=== PATIENT | female | born 1960 | race Caucasian/White ===

== ENCOUNTER → 2020-05-29 10:16 | Outpatient (CLI) | payer MEDICARE, BC, SELFPAY ==
--- NOTE | ~2020-05-29 | XR_ITS ---
EXAMINATION: XR chest 2V EXAM DATE: 05/29/2020 10:42 INDICATION: R07.89 - Other chest pain . TECHNIQUE: Frontal and lateral projections of the chest obtained and reviewed. Comparison is made to prior examination from 07/04/2018. FINDINGS: Mild hyperinflation. Sternotomy wires are present without findings to suggest sternal dehi scence. The lungs are clear. There are no pleural effusions. The cardiomediastinal silhouette is wi thin normal limits. There is no pneumothorax suspected. Left 5th rib fracture posteriorly, old. IMPRESSION: No acute cardiopulmonary findings. Reviewed, dictated and finalized at location B. GER LAUNDRY
== END ==
PROVIDERS: Visit Provider Physician Assistant
DX: R07.89 Other chest pain (principal)
CPT/HCPCS: 71046

== ENCOUNTER → 2021-01-25 08:50 | Outpatient (CLI) | payer MEDICARE, BC, SELFPAY ==
--- NOTE | ~2021-01-25 | XR_ITS ---
EXAMINATION: HAND-KESHA ARTHRITIS 3+VIEWS DATE: 01/25/2021 10:04 INDICATION: Right hand pain TECHNIQUE: Posteroanterior, lateral, and oblique views of the left and of the right hands as well as a ballcatchers view of both hands were obtained. COMPARISON: None. FINDINGS: Bone alignment is normal. No fracture. Polyarticular osteoarthritis characterized by nonuniform joint space narrowing and/or marginal osteophytes, moderate severity at several of the bilateral distal in terphalangeal joints and mild at the majority the remaining bilateral interphalangeal joints, many of the bilateral metacarpophalangeal joints and at many of the joints at the left wrist and carpus. No erosions to suggest an inflammatory arthritis such as rheumatoid. IMPRESSION: 1. Typical relatively symmetric pattern of mild to moderate polyarticular osteoarthritis at the bilat eral hands and wrists with distal interphalangeal joint predominance. Reviewed, dictated and finalized at location A. IMPRESSION: 1. Typical relatively symmetric pattern of mild to moderate polyarticular osteo arthritis at the bilateral hands and wrists with distal interphalangeal joint p redominance.
== END ==
PROVIDERS: PCP Family Medicine; Visit Provider Physician Assistant
DX: M19.041 Primary osteoarthritis, right hand (principal); M19.042 Primary osteoarthritis, left hand
CPT/HCPCS: 73130

== ENCOUNTER → 2021-07-01 09:39 | Outpatient (CLI) | payer MEDICARE, BC, SELFPAY ==
--- NOTE | ~2021-07-01 | CT_ITS ---
EXAMINATION: CT diagnostic chest w con DATE: 07/01/2021 10:06 INDICATION: Right chest wall pain, history of thymectomy and thyroid cancer TECHNIQUE: Transaxial computed tomographic images of the chest were obtained after the administration of 75 cc of Omnipaque 350 intravenous contrast. The dose-length product (DLP) was 241.73 mGy-cm. Ite rative reconstruction was used. COMPARISON: 08/08/2012 FINDINGS: The lungs are free of acute opacities. There is no pleural effusion or pneumothorax. There are a few stable pulmonary nodules, consistent with old granulomatous disease suspicious pulmonary no dule is identified. There are changes of interval anterior mediastinal mass removal. No residual mass is identified. No pathologically enlarged thoracic lymph nodes are identified. The heart size is nor mal. A stable right adrenal mass is consistent with an adenoma. There are changes of interval gastric bypass surgery. There is mild thoracic spondylosis. There are healed lateral fractures of the right fifth through seventh ribs. IMPRESSION: 1. Changes of interval anterior mediastinal mass resection and gastric bypass. 2. Healed lateral fractures of the right fifth through seventh ribs. Reviewed, dictated and finalized at location A. 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
== END ==
PROVIDERS: PCP Family Medicine; Visit Provider Physician Assistant
DX: R07.89 Other chest pain (principal); Z98.84 Bariatric surgery status; S22.41XA Multiple fractures of ribs, right side, initial encounter for closed fracture; M47.814 Spondylosis without myelopathy or radiculopathy, thoracic region
CPT/HCPCS: 71260; Q9967

== ENCOUNTER 2021-12-28 09:06 | Outpatient (CLI) | payer MEDICARE, BC, SELFPAY ==
[2021-12-28 13:47] LABS: Free T4 Free Thyroxine 1.79 ng/mL (0.78-2.19); Vitamin D 25 Hydroxy 39.5 ng/mL
[2021-12-28 13:59] LABS: Thyroid Stimulating Hormone 0.226 uIU/mL (0.465-4.680)
== END 2021-12-28 09:07 | disposition home or self-care (01) ==
LOC: ANHWCLAB 09:11
PROVIDERS: PCP Family Medicine; Visit Provider Internal Medicine Endocrinology, Diabetes & Metabolism
DX: C73 Malignant neoplasm of thyroid gland (principal); E03.9 Hypothyroidism, unspecified; E88.81 Metabolic syndrome and other insulin resistance; M85.89 Other specified disorders of bone density and structure, multiple sites; E73.0 Congenital lactase deficiency; E07.9 Disorder of thyroid, unspecified; E55.9 Vitamin D deficiency, unspecified
CPT/HCPCS: 36415; 82306; 84439; 84443

== ENCOUNTER → 2022-03-07 15:44 | Outpatient (CLI) | payer MEDICARE, BC, SELFPAY ==
--- NOTE | ~2022-03-07 | DEXA_ITS ---
Bone Density Report Name: SASHA SANDERS Age: 61 Sex: Female Ethnicity: White Date of : 1960 Indication: osteopenia; history of glucocorticoids; prior fracture; hysterectomy; postmenopausal Referring Provider: Klarissa Martinez Study: Bone densitometry was performed. Exam Date: March 07, 2022 Accession number: [id number] Bone Density: Region BMD T-score Z-score Classification AP Spine (L1-L4) 0.779 -2.4 -1.0 Osteopenia Femoral Neck (Left) 0.601 -2.2 -0.9 Osteopenia Total Hip (Left) 0.663 -2.3 -1.3 Osteopenia Femoral Neck (Right) 0.626 -2.0 -0.7 Osteopenia Total Hip (Right) 0.639 -2.5 -1.5 Osteoporosis Total Hip Mean 0.651 -2.4 -1.4 Osteopenia World Health Organization criteria for BMD impression classify patients as: Normal (T-score at or above -1.0), Osteopenia (T-score between -1.0 and -2.5), or Osteoporosis (T-score at or below -2.5). 10-year Fracture Risk: FRAX not reported because: Some T-score for Spine Total or Hip Total or Femoral Neck at or below -2.5 Previous Exams: Region Exam Age BMD T-score BMD Change BMD Change Date g/cm2 vs Baseline vs Previous AP Spine(L1-L4) 03/07/2022 61 0.779 -2.4 -0.205* -0.043* 11/21/2018 58 0.822 -2.0 -0.162* -0.008 11/25/2015 55 0.830 -2.0 -0.154* -0.032 10/07/2013 52 0.862 -1.7 -0.122 -0.122 09/11/2009 48 0.984 -0.6 Total Hip(Left) 03/07/2022 61 0.663 -2.3 -0.145* -0.147* 11/21/2018 58 0.809 -1.1 0.002 0.054* 11/25/2015 55 0.756 -1.5 -0.052* -0.087 10/07/2013 52 0.843 -0.8 0.035 0.035 09/11/2009 48 0.807 -1.1 Total Hip(Right) 03/07/2022 61 0.639 -2.5 -0.152* -0.158* 11/21/2018 58 0.797 -1.2 0.006 0.069* 11/25/2015 55 0.728 -1.8 -0.064* -0.073 10/07/2013 52 0.801 -1.2 0.010 0.010 09/11/2009 48 0.791 -1.2 *Denotes significance at 95% confidence level, LSC for AP Spine = 0.022 g/cm2, LSC for Total Hip = 0.027 g/cm2 Clinical Information Provided by Patient: Has had a low trauma fracture Has taken Glucocorticoids Has used the following medications: Calcium, MTV, LEVOTHYROXINE Has the following medical conditions: Hysterectomy, HX OF THYROID CA -1974 WITH RADIATION, THYMOMA -2014 Patient maximum height was 63.2 Menopause Age: 31 Does not regularly consume dairy products Drinks caffeinated beverages
== END ==
PROVIDERS: PCP Family Medicine; Visit Provider Internal Medicine Endocrinology, Diabetes & Metabolism
DX: M85.88 Other specified disorders of bone density and structure, other site (principal); M85.852 Other specified disorders of bone density and structure, left thigh; M85.851 Other specified disorders of bone density and structure, right thigh; M81.0 Age-related osteoporosis without current pathological fracture
CPT/HCPCS: 77080

== ENCOUNTER 2022-03-08 08:29 | Outpatient (CLI) | payer MEDICARE, BC, SELFPAY ==
[2022-03-08 09:35] LABS: Hematocrit 40.2 % (37.0-47.0); Hemoglobin 13.2 g/dL (12.0-15.0); Mean Corpuscular HGB Conc 32.8 g/dl (32-36); Mean Corpuscular Hemoglobin 29.3 pg (26-34); Mean Corpuscular Volume 89.1 fl (80-100); Mean Platelet Volume 9.9 fl (7.4-10.4); Platelet Count Result 262 k/mm3 (150-375); Red Blood Count 4.51 M/mm3 (4.2-5.4); Red Cell Distribution Width 12.4 % (11.5-14.5); White Blood Count 5.9 K/mm3 (4.5-10.0)
[2022-03-08 10:59] LABS: Alanine Aminotransferase 26 U/L (6-35); Albumin Level 4.3 g/dL (3.5-5.1); Alkaline Phosphatase 91 U/L (38-126); Anion Gap 8 mmol/L (8-16); Aspartate Amino Transferase 31 U/L (14-36); Bilirubin,Total 0.6 mg/dL (0.2-1.3); Blood Urea Nitrogen 9 mg/dL (7-17); Calcium 9.2 mg/dL (8.4-10.2); Carbon Dioxide 29 mmol/L (22-30); Chloride 103 mmol/L (98-107); Cholesterol 179 mg/dL (0-200); Estimated Glomerular Filt Rate > 60; Glucose 94 mg/dL (65-110); HDL Direct 56 mg/dL; Potassium 3.6 mmol/L (3.4-5.0); Sodium 140 mmol/L (137-145); Triglycerides 63 mg/dL (<150)
[2022-03-08 11:09] LABS: LDL Cholesterol Direct 99 mg/dL
== END 2022-03-08 08:30 | disposition home or self-care (01) ==
LOC: ANHLAB 08:31
PROVIDERS: Physician Assistant; PCP Family Medicine; Visit Provider Internal Medicine Endocrinology, Diabetes & Metabolism
DX: E78.5 Hyperlipidemia, unspecified (principal); R53.83 Other fatigue; Z13.220 Encounter for screening for lipoid disorders; Z13.1 Encounter for screening for diabetes mellitus; D64.9 Anemia, unspecified; E03.8 Other specified hypothyroidism; K58.2 Mixed irritable bowel syndrome
CPT/HCPCS: 36415; 80053; 80061; 82607; 85027

== ENCOUNTER → 2022-03-28 11:27 | Outpatient (CLI) | payer MEDICARE, BC, SELFPAY ==
--- NOTE | ~2022-03-28 | XR_ITS ---
EXAMINATION: XR abdomen/kub 1V INDICATION: Unspecified abdominal pain TECHNIQUE: Supine views of the abdomen were obtained on 2 radiographs. COMPARISON: None FINDINGS: Surgical changes are noted near the gastroesophageal junction and in the left midabdomen. T here appear to be mildly dilated loops of small bowel in the left upper quadrant. Gas and stool are s een throughout the colon to the level of the rectum. No free intraperitoneal gas is identified. IMPRESSION: 1. Possible mildly dilated loops of bowel in the left upper quadrant. Recommend correlation for left upper abdominal pain and consider further evaluation with CT. Reviewed, dictated and finalized at location B.
== END ==
PROVIDERS: PCP Family Medicine; Visit Provider Physician Assistant Medical
DX: R10.9 Unspecified abdominal pain (principal)
CPT/HCPCS: 74018

== ENCOUNTER 2022-09-28 10:12 | Outpatient (CLI) | payer MEDICARE, BC, SELFPAY ==
[2022-09-28 17:22] LABS: Hemoglobin A1C 5.2 % (<5.7)
[2022-09-28 17:23] LABS: Albumin Level 4.3 g/dL (3.5-5.1); Anion Gap 5 mmol/L (8-16); Blood Urea Nitrogen 18 mg/dL (7-17); Calcium 8.7 mg/dL (8.4-10.2); Carbon Dioxide 30 mmol/L (22-30); Chloride 101 mmol/L (98-107); Estimated Glomerular Filt Rate > 60; Glucose 112 mg/dL (65-110); Phosphorus 4.3 mg/dL (2.5-4.5); Potassium 3.6 mmol/L (3.4-5.0); Sodium 136 mmol/L (137-145)
== END 2022-09-28 10:13 | disposition home or self-care (01) ==
LOC: ANHWCLAB 10:17
PROVIDERS: PCP Family Medicine; Visit Provider Internal Medicine Endocrinology, Diabetes & Metabolism
DX: Z78.0 Asymptomatic menopausal state (principal); C73 Malignant neoplasm of thyroid gland; R73.03 Prediabetes
CPT/HCPCS: 36415; 80069; 83036; 86800

== ENCOUNTER → 2022-12-14 08:09 | Outpatient (CLI) | payer MEDICARE, BC, SELFPAY ==
--- NOTE | ~2022-12-14 | CT_ITS ---
CT scan of the Neck Technique: 2.5 mm axial scans were obtained through the neck after intravenous administration of 75 c c Omnipaque 350. Coronal and sagittal reconstructions of the neck were obtained. Dose reduction techn ique was used on this scan by utilizing automated exposure control and iterative reconstruction techn ique. The dose-length product (DLP) was 406.38 mGy-cm. Clinical History: Hoarseness, history of silicone vocal cord implant COMPARISON: 11/03/2003 Findings: There is no evidence of any significant cervical lymphadenopathy. Several small, nonenlarged jugulo- digastric and posterior cervical lymph nodes are noted bilaterally. Parapharyngeal spaces appear norm al bilaterally. The parotid glands and left submandibular gland appear normal. Probable prior right 7 5 gland resection. There is a hyperdense masslike lesion along the right side of the vocal cords at the thyroid cartilag e region (axial image 70), consistent with history of prior vocal cord silicone implant. 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 There are multiple surgical clips and/or metallic debris in the right neck near the carotid bifurcation, uncha nged. There is evidence of prior thyroidectomy. Images of the lung apices reveal mild mosaic attenuation pa ttern. Right maxillary sinus disease noted. Remaining paranasal sinuses are clear. There is fluid in several left mastoid air cells. Impression: Presumed silicone focal cord implant along the right side of the vocal cord region, as detailed above . Postoperative changes in the right neck and related to prior thyroidectomy, stable from prior exam. Mosaic attenuation pattern of the visualized lungs. Correlate for asthma, bronchiolitis, hypersensiti vity pneumonitis, or other chronic interstitial disease. Reviewed, dictated and finalized at [facility]. Impression: Presumed silicone focal cord implant along the right side of the vocal cord reg ion, as detailed above. Postoperative changes in the right neck and related to prior thyroidectomy, sta ble from prior exam. Mosaic attenuation pattern of the visualized lungs. Correlate for asthma, bronc hiolitis, hypersensitivity pneumonitis, or other chronic interstitial disease.
[2022-12-14 08:38] LABS: Estimated Glomerular Filt Rate > 60
== END ==
PROVIDERS: PCP Nurse Practitioner Family; Visit Provider Nurse Practitioner Family
DX: R49.0 Dysphonia (principal); R91.8 Other nonspecific abnormal finding of lung field; Z90.89 Acquired absence of other organs
CPT/HCPCS: 70491; Q9967

== ENCOUNTER 2023-08-18 01:03 | Day surgery (SDC) | payer MEDICARE, BC, SELFPAY ==
[2023-07-21 11:11] VITALS: BMI 33.7
--- NOTE | 2023-08-16 10:17 | SUR.PREOP ---
Patient called regarding upcoming procedure. Reviewed preop instructions, appointment times, and procedure prep.
[2023-08-18 11:20] VITALS: BP 180/95; PULSE 92; RESP 20; TEMP 35.9; O2SAT 97
[2023-08-18 11:21] VITALS: BMI 36.0
[2023-08-18] MEDS: LACTATED RINGERS 1,000 ML 150 ML IV CONT (11:30)
[2023-08-18 11:33] VITALS: BP 151/76
--- NOTE | 2023-08-18 11:38 | WPDANESEPPF ---
Anes - Initial Pre Proc Eval Procedure: Operation Date: 08/18/23 12:30 Proposed Procedures p Esophagogastroduodenoscopy & Colonoscopy - Jonathan Macias MD Date/Time: 08/18/23 11:38 Surgeon: Jonathan Macias MD Pre Op Diagnosis: Iron deficiency anemia,Bariatric surgery,GERD Patient Data Age: 62 Gender: F Height: 1.6 m Weight: 92.3 kg Last Vital Signs Temp 96.6 F L 08/18/23 11:20 Pulse 92 08/18/23 11:20 Resp 20 08/18/23 11:20 BP 151/76 H 08/18/23 11:33 Pulse Ox 97 08/18/23 11:20 O2 Del Method Room Air 08/18/23 11:20 Allergies Allergy/AdvReac Type Severity Reaction Status Date / Time morphine Allergy Intermediate ITCHY Verified 08/18/23 11:18 Penicillins Allergy Mild SOB, ITCHY Verified 08/18/23 11:18 codeine Allergy Unknown ITCHING Verified 08/18/23 11:18 PROPOXYPHENE NAPSYLATE Allergy Unknown ITCHY Uncoded 08/18/23 11:18 Home Medications Medication Instructions Recorded Confirmed Type multivitamin 1 tablet PO DAILY 12/17/20 07/21/23 History alendronate 70 mg tablet (Fosamax) 70 mg PO WEEKLY 90 days #13 tabs 09/16/22 07/21/23 Rx pantoprazole 40 mg tablet,delayed See Rx Instructions .Route 03/01/23 07/21/23 Rx release .COMPLEX #90 tabs albuterol sulfate 90 mcg/actuation 2 inh inhalation Q4-6H PRN 06/06/23 07/21/23 History breath activated powder inhaler Shortness Of Breath fluticasone furoate 100 1 inh inhalation DAILY 06/06/23 07/21/23 History mcg-vilanterol 25 mcg/dose inhalation powder prednisone 20 mg tablet 12.5 mg PO DAILY 06/06/23 07/21/23 History duloxetine 60 mg capsule,delayed 60 mg PO DAILY #90 caps 06/21/23 07/21/23 Rx release ascorbic acid (vitamin C) 1,000 mg 1 g PO DAILY 07/11/23 07/21/23 History capsule ferrous sulfate 325 mg (65 mg 325 mg PO DAILY 07/11/23 07/21/23 History iron) tablet levothyroxine 137 mcg tablet See Rx Instructions .Route 08/14/23 08/18/23 Rx .COMPLEX #90 tabs Patient hx anesthesia problems: none Family hx anesthesia problems: none Results Review: All pre-operative results and documents have been reviewed as part of the pre-operative evaluation. [facility] Past Medical History Medical History (Updated 07/11/23 @ 14:26 by Bren Krause, ROVING MARKER-C) Bipolar affective, depress, part remis Essential hypertension Gastroesophageal reflux disease Hyperlipidemia, unspecified Hypersomnolence Hypothyroidism, unspecified NAYANA (iron deficiency anemia) Irritable bowel syndrome with both constipation and diarrhea Left flank pain Malignant neoplasm of thyroid gland Metabolic syndrome Mood disorder Myasthenia gravis Osteopenia Otalgia, left ear Primary malignant neoplasm Vitamin D deficiency Surgical History Surgical History H/O gastric bypass H/O thymectomy H/O: hysterectomy History of appendectomy Family History Family History Father Hypertension Family history of coronary artery disease Other Family history of Alzheimer's disease Family history of lung disease Social History Social History (Updated 06/06/23 @ 11:23 by Maryam Mcfarland MA) Years smoked: 3 Smoking status: Former smoker Tobacco type: cigarettes Second hand tobacco smoke exposure: No Additional smoking assessment comments: former social smoker Alcohol intake: never Substance use: never Substance use type: does not use Lack of Transportation: No Lack of Food: Never True Current Housing: I Have Housing Concerned About Future Housing: No Difficulty Paying Gas/Electric Bills: No Difficulty Paying for Meds: No Currently Unemployed: No Education: Decline to Answer Difficulty w/ Childcare or Family Care: Decline to Answer Living arrangements: with family Spiritual care concerns: No Agree to blood products: Yes Anes - Eval Final PreProcedure Day of Procedure 08/18/23 11:38
--- NOTE | 2023-08-18 12:29 | PM.HPGS ---
History of Present Illness History of Present Illness Consent: Risks, benefits, and alternatives have been discussed and questions answered. Patient agrees to proceed with procedure. Chief complaint: Iron deficiency anemia,Bariatric surgery,GERD Narrative: Yareli Glass is a 62 year old female with branden but better after using iron, also previous gastric bypass. EGD and colonoscopy 2018, no overt gib Review of Systems Constitutional: Constitutional: Denies headache(s) and Denies weakness Eyes: Eyes: Denies blurry vision ENT: Reports Normal hearing present, Denies headache(s) and Denies neck pain Cardiovascular: Cardiovascular: Denies chest pain and Denies dyspnea Respiratory: Respiratory: Denies dyspnea Gastrointestinal: Gastrointestinal: Reports no additional gastrointestinal complaints Genitourinary: Genitourinary: Denies dysuria Musculoskeletal: Musculoskeletal: Denies neck pain Integumentary/Breasts: Skin/Breast: Denies dry skin Neurologic: Reports Normal hearing present, Denies headache(s) and Denies weakness Psychiatric: Psychiatric: Denies anxiety Endocrine: Endocrine: Denies change in body appearance Hematologic/Lymphatic: Hematologic/Lymphatic: Denies easy bleeding Allergic/Immunologic: Allergic/Immunologic: Denies urticaria PMFSH Past Medical History Medical History (Updated 07/11/23 @ 14:26 by SHELLEY LeaN-C) Bipolar affective, depress, part remis Essential hypertension Gastroesophageal reflux disease Hyperlipidemia, unspecified Hypersomnolence Hypothyroidism, unspecified BRANDEN (iron deficiency anemia) Irritable bowel syndrome with both constipation and diarrhea Left flank pain Malignant neoplasm of thyroid gland Metabolic syndrome Mood disorder Myasthenia gravis Osteopenia Otalgia, left ear Primary malignant neoplasm Vitamin D deficiency Surgical History Surgical History H/O gastric bypass H/O thymectomy H/O: hysterectomy History of appendectomy Family History Family History Father Hypertension Family history of coronary artery disease Other Family history of Alzheimer's disease Family history of lung disease Social History Social History (Updated 06/06/23 @ 11:23 by Maryam Mcfarland MA) Years smoked: 3 Smoking status: Former smoker Tobacco type: cigarettes Second hand tobacco smoke exposure: No Additional smoking assessment comments: former social smoker Alcohol intake: never Substance use: never Substance use type: does not use Lack of Transportation: No Lack of Food: Never True Current Housing: I Have Housing Concerned About Future Housing: No Difficulty Paying Gas/Electric Bills: No Difficulty Paying for Meds: No Currently Unemployed: No Education: Decline to Answer Difficulty w/ Childcare or Family Care: Decline to Answer Living arrangements: with family Spiritual care concerns: No Agree to blood products: Yes Meds Home Medications and Allergies Home Medications Medication Instructions Recorded Confirmed Type multivitamin 1 tablet PO DAILY 12/17/20 07/21/23 History alendronate 70 mg tablet (Fosamax) 70 mg PO WEEKLY 90 days #13 tabs 09/16/22 07/21/23 Rx pantoprazole 40 mg tablet,delayed See Rx Instructions .Route 03/01/23 07/21/23 Rx release .COMPLEX #90 tabs albuterol sulfate 90 mcg/actuation 2 inh inhalation Q4-6H PRN 06/06/23 07/21/23 History breath activated powder inhaler Shortness Of Breath fluticasone furoate 100 1 inh inhalation DAILY 06/06/23 07/21/23 History mcg-vilanterol 25 mcg/dose inhalation powder prednisone 20 mg tablet 12.5 mg PO DAILY 06/06/23 07/21/23 History duloxetine 60 mg capsule,delayed 60 mg PO DAILY #90 caps 06/21/23 07/21/23 Rx release ascorbic acid (vitamin C) 1,000 mg 1 g PO DAILY 07/11/23 07/21/23 History capsule ferrous sulfate 325 mg (65 mg 325 mg
--- NOTE | 2023-08-18 12:45 | SUR.OPER ---
EGD: [id number] COLON: 1245
[2023-08-18 13:00] VITALS: BP 146/82; PULSE 73; RESP 20; O2SAT 99
[2023-08-18 13:10] VITALS: BP 168/93; PULSE 70; RESP 20; O2SAT 100
[2023-08-18 13:20] VITALS: BP 166/90; PULSE 72; RESP 20; O2SAT 100
== END 2023-08-18 13:25 | disposition home or self-care (01) ==
PROVIDERS: PCP Family Medicine; Visit Provider Internal Medicine Gastroenterology
PROC: 0DJ08ZZ Inspection of Upper Intestinal Tract, Via Natural or Artificial Opening Endoscopic (ICD-10-PCS; CPT 43235; principal; 2023-08-18 12:30)
DX: K29.50 Unspecified chronic gastritis without bleeding (principal); D50.9 Iron deficiency anemia, unspecified; I10 Essential (primary) hypertension; E78.5 Hyperlipidemia, unspecified; E03.9 Hypothyroidism, unspecified; E55.9 Vitamin D deficiency, unspecified; K21.9 Gastro-esophageal reflux disease without esophagitis; G47.10 Hypersomnia, unspecified; K58.2 Mixed irritable bowel syndrome; E88.810 Metabolic syndrome; F31.75 Bipolar disorder, in partial remission, most recent episode depressed; G70.00 Myasthenia gravis without (acute) exacerbation; E66.9 Obesity, unspecified; Z68.36 Body mass index [BMI] 36.0-36.9, adult; Z79.51 Long term (current) use of inhaled steroids; Z79.52 Long term (current) use of systemic steroids; Z98.890 Other specified postprocedural states; Z98.84 Bariatric surgery status; Z87.891 Personal history of nicotine dependence; Z85.850 Personal history of malignant neoplasm of thyroid; Z82.49 Family history of ischemic heart disease and other diseases of the circulatory system
CPT/HCPCS: 43239; 45378; 88305; J2704; J7120

== ENCOUNTER 2024-02-05 14:11 | Outpatient (CLI) | payer MEDICARE, BC, SELFPAY ==
--- NOTE | ~2024-02-05 | US_ITS ---
EXAMINATION: US soft tissue head and neck DATE: 02/05/2024 14:45 INDICATION: Lymph node at the left upper neck with prior thyroid cancer TECHNIQUE: Multiple grayscale and Doppler ultrasound images of the left neck were obtained. COMPARISON: CT dated 12/14/2022 FINDINGS: There are multiple typical appearing ovoid very hypoechoic lymph nodes at the left neck with hypoecho ic cortices and central echogenic hilum. The largest measures 1.1 cm maximal short axis diameter whic h is mildly enlarged. Remainder all remain normal in size. There is a larger and more hyperechoic mas s with lobular margins which measures 2.2 x 1.9 x 1.2 cm at the region of concern. IMPRESSION: 1. Mildly enlarged lymph node the left neck measuring 1.1 cm maximal diameter which could be reactive or metastatic. 2. 2.2 x 1.9 x 1.2 cm mass with lobular margins at the region of concern at the left neck. Correlatio n with prior CT suggests this could potentially represent the left submandibular gland. Differential would also include metastatic disease. If not representing the submandibular gland this would be more concerning than the previously noted lymph node and recommend repeat CT of the neck with contrast to determine whether this represents the submandibular gland prior to any planned biopsy and to assess for any additional concerning lesions. Reviewed, dictated and finalized at location A. IMPRESSION: 1. Mildly enlarged lymph node the left neck measuring 1.1 cm maximal diameter w hich could be reactive or metastatic. 2. 2.2 x 1.9 x 1.2 cm mass with lobular margins at the region of concern at the left neck. Correlation with prior CT suggests this could potentially represent the left submandibular gland. Differential would also include metastatic disea se. If not representing the submandibular gland this would be more concerning t arevalo the previously noted lymph node and recommend repeat CT of the neck with co ntrast to determine whether this represents the submandibular gland prior to an y planned biopsy and to assess for any additional concerning lesions.
== END 2024-02-05 14:12 ==
PROVIDERS: PCP Family Medicine; Visit Provider Internal Medicine Endocrinology, Diabetes & Metabolism
DX: R59.0 Localized enlarged lymph nodes (principal)
CPT/HCPCS: 76536

== ENCOUNTER 2024-02-06 08:27 | Outpatient (CLI) | payer MEDICARE, BC, SELFPAY ==
--- NOTE | ~2024-02-06 | CT_ITS ---
EXAMINATION: CT abdomen pelvis wo/w con DATE: 02/06/2024 09:11 INDICATION: Adrenal mass TECHNIQUE: Computed tomography (CT) of the abdomen and pelvis was performed without intravenous contr ast. Automated exposure control and iterative reconstruction technique were employed. The dose-length product was 1999.93 mGy-cm. COMPARISON: None FINDINGS: Discoid atelectasis in the lingula. Heart size is normal. No pericardial or pleural effusion. Liver, gallbladder, spleen, pancreas and left adrenal gland are normal. 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 There are bilateral low-attenuation nonenhancing renal cysts measuring up to 1.3 cm in the left kidney. There are a pair of nonobstructing 7 mm stones in t he right kidney in upper and lower pole calyces. Status post appendectomy with suture line at the tip the cecum. No bowel obstruction. Bladder is normal. The uterus is not identified and has likely been surgically resected. Tiny fat-containing umbilical hernia. No free intraperitoneal gas or fluid. No pathologically enlarged abdominal or pelvic lymphadenopathy. Moderate lower thoracic and mild lumbar spondylosis. IMPRESSION: 1. 2.6 x 1.7 cm right adrenal mass containing a significant amount of macroscopic fat, diagnostic for angiomyolipoma. 2. Nonobstructing right nephrolithiasis. Reviewed, dictated and finalized at location A. IMPRESSION: 1. 2.6 x 1.7 cm right adrenal mass containing a significant amount of macroscop ic fat, diagnostic for angiomyolipoma. 2. Nonobstructing right nephrolithiasis.
[2024-02-06 08:54] LABS: Estimated Glomerular Filt Rate > 60
== END 2024-02-06 08:28 | disposition home or self-care (01) ==
LOC: ANHIMG 08:31
PROVIDERS: PCP Family Medicine; Visit Provider Internal Medicine Endocrinology, Diabetes & Metabolism
DX: D17.79 Benign lipomatous neoplasm of other sites (principal); E27.9 Disorder of adrenal gland, unspecified; N20.0 Calculus of kidney
CPT/HCPCS: 74178; Q9967

== ENCOUNTER 2024-03-12 09:08 | Outpatient (CLI) | payer MEDICARE, BC, SELFPAY ==
--- NOTE | ~2024-03-12 | CT_ITS ---
EXAMINATION: CT soft tissue neck w con DATE: 03/12/2024 10:02 INDICATION: Malignant neoplasm of thyroid gland. TECHNIQUE: Computed tomography (CT) of the neck was performed with 75 mL Omnipaque-350 intravenous co ntrast. Automated exposure control and iterative reconstruction technique were employed. The dose-arlette gth product was 523.88 mGy-cm. COMPARISON: CT neck 12/14/2022 FINDINGS: There is mucosal thickening in the paranasal sinuses. There are changes of thyroidectomy. T here are surgical clips are noted. Median sternotomy wires are noted. There are no pathologically enl arged lymph nodes. There are changes of injection of right vocal cord. There is a small left mastoid effusion. There is moderate cervical spondylosis. IMPRESSION: 1. No evidence of metastatic disease. Reviewed, dictated and finalized at location A.
[2024-03-12 09:54] LABS: Estimated Glomerular Filt Rate > 60
== END 2024-03-12 09:09 | disposition home or self-care (01) ==
LOC: ANHIMG 09:11
PROVIDERS: PCP Family Medicine; Visit Provider Internal Medicine Endocrinology, Diabetes & Metabolism
DX: C73 Malignant neoplasm of thyroid gland (principal); R59.1 Generalized enlarged lymph nodes
CPT/HCPCS: 70491; Q9967

== ENCOUNTER 2024-04-23 12:28 | Outpatient (CLI) | payer MEDICARE, BC, SELFPAY ==
--- NOTE | ~2024-04-23 | MM_ITS ---
EXAMINATION: MM screening rajwinder BI w rosie HISTORY: Screening TECHNIQUE: Craniocaudal and mediolateral oblique 3-D tomosynthesis images were obtained and synthetic 2-D images were generated. CAD analysis was submitted and interpreted. COMPARISON: Comparison to multiple prior studies sequentially, with oldest reviewed study dated 01/2018. BREAST PARENCHYMAL COMPOSITION: Not dense: There are scattered areas of fibroglandular density. FINDINGS: There is no evidence of suspicious mass, calcification, or architectural distortion to sugg est malignancy in either breast. There has been no suspicious interval change. IMPRESSION: 1. No mammographic evidence of malignancy. 2. Recommend routine screening mammography in one year. BI-RADS Category 1: Negative Reviewed, dictated and finalized at location B.
== END 2024-04-23 12:29 | disposition home or self-care (01) ==
LOC: MICIMG 12:32
PROVIDERS: PCP Family Medicine; Visit Provider Family Medicine
DX: Z12.31 Encounter for screening mammogram for malignant neoplasm of breast (principal)
CPT/HCPCS: 77063; 77067

== ENCOUNTER 2024-05-31 07:21 | Outpatient (CLI) | payer MEDICARE, BC, SELFPAY ==
--- NOTE | ~2024-05-31 | DEXA_ITS ---
Bone Density Report Name: SASHA SANDERS Age: 63 Sex: Female Ethnicity: White Date of : 1960 Indication: postmenopausal; screening for osteoporosis; parental hip fracture; height loss; history of glucocorticoids; cancer; asthma or emphysema; hysterectomy; secondary osteoporosis; Referring Provider: HEBER VERGARA Study: Bone densitometry was performed. Exam Date: May 31, 2024 Accession number: [id number] Bone Density: Region BMD T-score Z-score Classification AP Spine(L1-L4) 0.758 -2.6 -1.0 Osteoporosis Femoral Neck (Left) 0.600 -2.2 -0.8 Osteopenia Total Hip (Left) 0.788 -1.3 -0.2 Osteopenia Femoral Neck (Right) 0.654 -1.8 -0.4 Osteopenia Total Hip (Right) 0.721 -1.8 -0.7 Osteopenia Total Hip Mean 0.754 -1.6 -0.5 Osteopenia World Health Organization criteria for BMD impression classify patients as: Normal (T-score at or above -1.0), Osteopenia (T-score between -1.0 and -2.5), or Osteoporosis (T-score at or below -2.5). 10-year Fracture Risk: FRAX not reported because: Some T-score for Spine Total or Hip Total or Femoral Neck at or below -2.5 Treated for osteoporosis Clinical Information Provided by Patient: Parent has had a hip fracture Has taken Glucocorticoids Has secondary osteoporosis Is being treated for osteoporosis Has used the following medications: Fosamax (i.e. alendronate), Vitamin D, Calcium Has the following medical conditions: Asthma or Emphysema, Cancer, Hysterectomy Patient maximum height was 63 Menopause Age: 36 No regular weight bearing exercise Does not regularly consume dairy products Drinks caffeinated beverages Onset of menses at age 14 Number of children 2 Impression: The patient has osteoporosis, based on the Total Spine T-score. The patient has risk factors, including: parental hip fracture, history of glucocorticoid therapy. Discussion: It is important to ask patients whether they are taking their medications and to encourage continued and appropriate compliance with their osteoporosis therapies to reduce fracture risk. It is also important to review their risk factors and encourage appropriate calcium and vitamin D intakes, exercise, fall prevention and other lifestyle measures. Follow-Up: Consider a repeat BMD and Vertebral Fracture Assessment (VFA) exam in 2 years or sooner if medically necessary, to reassess this patient's status. Reported by: LEAH on 05/31/2024 8:03:00 AM. Reviewed, dictated and finalized at location [facility]
== END 2024-05-31 07:22 | disposition home or self-care (01) ==
LOC: ANHIMG 07:22
PROVIDERS: PCP Family Medicine; Visit Provider Internal Medicine Endocrinology, Diabetes & Metabolism
DX: Z78.0 Asymptomatic menopausal state (principal); M81.0 Age-related osteoporosis without current pathological fracture; M85.852 Other specified disorders of bone density and structure, left thigh; M85.851 Other specified disorders of bone density and structure, right thigh
CPT/HCPCS: 77080

== ENCOUNTER 2025-04-01 10:23 | Outpatient (CLI) | payer MEDICARE, BC, SELFPAY ==
--- NOTE | ~2025-04-01 | PE_ITS ---
EXAMINATION: PET skull to mid thigh DATE: 04/01/2025 12:44 INDICATION: Malignant neoplasm of the thyroid gland TECHNIQUE: Blood glucose level was 91 mg/dL. 9.92 mCi of 18-fluorodeoxyglucose (18-FDG) was administered i.v. Low dose computed tomography (CT) images were acquired from the base of the brain to the proximal thighs for attenuation correction and anatomic localization. Positron emission tomography (PET) images were acquired in the same distribution beginning 71 minutes after injection. Images including fused PET/CT images were reconstructed in axial, coronal, and sagittal planes. Automated exposure control technique was employed. The dose- length product was 1242.18mGy-cm. COMPARISON: None FINDINGS: Head/neck: There is symmetric increased activity in the oral cavity, palatine tonsils, laryngeal muscles and ocular muscles without CT correlate, likely physiologic. Tiny focus of increased uptake with maximal SUV of 4.8 along the skin surface situated slightly anterior to the left parotid gland and slightly caudal to the zygomatic arch Postoperative change of prior thyroidectomy reportedly for thyroid malignancy with surgical clips at the right thyroid fossa. No abnormal soft tissue densities or abnormal FDG activity at the thyroid fossa to suggest residual/locally recurrent disease. There are multiple surgical clips along the right jugular chain consistent with prior lymph node dissection without residual pathologically enlarged jugular chain lymphadenopathy or abnormally enhancing FDG avid lesions. There are a few mildly FDG avid cervical lymph nodes. This includes a 10 x 5 mm right submandibular lymph node with maximal SUV is 2.8, a 1.4 x 1.0 cm right posterior triangle lymph node with maximal SUV of 4.0 and a 7 x 5 mm right submental lymph node with maximal SUV of 2.0. There is also a 10 x 8 mm left submandibular lymph node with maximal SUV of 2.1. These all appear without significant interval change in size when compared with CT dated 03/12/2024 and 12/14/2022. There is increased density of the right vocal cord which is more medially positioned than the left which suggests injection of bulking agent for possible right laryngeal nerve palsy. Chest: Mild discoid atelectasis at the lingula. Small calcified nodules in the perihilar right middle lobe along with calcified right hilar lymph nodes consistent with old granulomatous disease. No suspicious pulmonary nodules, pneumonia, pulmonary edema or pleural effusion. Heart size is normal. No pericardial effusion. Postoperative change of prior median sternotomy and coronary artery bypass grafting. Thoracic aorta is normal in caliber. No pathologically enlarged or FDG avid thoracic lymphadenopathy. Abdomen/pelvis/proximal thighs: Postoperative change of prior gastric bypass procedure. There is also a suture line along the tip the cecum consistent with prior appendectomy. Physiologic renal accumulation and excretion of FDG activity in the kidneys, bladder and along portions of ureters. There is mild right hydronephrosis and proximal hydroureter extending to several stones in the mid right ureter the largest and most caudal measuring 6 mm in maximal diameter. Normal degree and heterogenous pattern of increased uptake throughout the liver without radiologic correlate or dominant FDG avid lesion. The gallbladder, pancreas, spleen and left adrenal gland are normal. Unchanged 2 cm exophytic fat attenuation right adrenal adenoma without abnormal FDG activity. Mild uptake scattered throughout the bowels without radiologic correlate, also likely physiologic. The uterus is not identified and has likely been surgically resected. No other abnormal foci of increased FDG uptake or pathologically enlarged lymphadenopathy in the abdomen, pelvis or proximal thighs. Musculoskeletal: Moderate thoracic spondylosis. Blastic or abnormally FDG avid bone lesions. Small focus of likely extravasated activity at the left hand. There is mild synovial uptake throughout the right glenohumeral joint including extending along with a small amount of fluid into the deep subscapular recess. Likely mild enthesopathic uptake in the proximal right forearm near the elbow with recent extending outside of the [id number] on the CT images. IMPRESSION: 1. Status post thyroidectomy and likely right carotid chain lymph node dissection with no evident residual/locally recurrent disease. 2. Mild uptake associated with a few mildly prominent lymph nodes in bilateral submandibular, right submental and right posterior triangle regions of which appear unchanged since PET/CT dated 12/14/2022 and likely reactive. Recommend continued attention on follow-up imaging. 3. Nonspecific small focus of mild uptake along the skin surface at the left side of the face anterior to the region of the left parotid gland. Correlate with physical exam. 4. No abnormal FDG avid lesions chest, abdomen or pelvis suspicious for primary malignancy or metastatic disease. 5. At least partially obstructing stones in the proximal right ureter measuring up to 6 mm with mild right hydroureteronephrosis. Reviewed, dictated and finalized at location A. IMPRESSION: 1. Status post thyroidectomy and likely right carotid chain lymph node dissecti on with no evident residual/locally recurrent disease. 2. Mild uptake associated with a few mildly prominent lymph nodes in bilateral submandibular, right submental and right posterior triangle regions of which ap pear unchanged since PET/CT dated 12/14/2022 and likely reactive. Recommend cont inued attention on follow-up imaging. 3. Nonspecific small focus of mild uptake along the skin surface at the left si de of the face anterior to the region of the left parotid gland. Correlate with physical exam. 4. No abnormal FDG avid lesions chest, abdomen or pelvis suspicious for primary malignancy or metastatic disease. 5. At least partially obstructing stones in the proximal right ureter measuring up to 6 mm with mild right hydroureteronephrosis.
--- OUTSIDE RECORDS SUMMARY | 2025-04-01 12:08 | XMS_ITS | Clinical Summary ---
Author Organization [facility] Office Center Address [address] [place] [address] Care Team Providers Care Edger Saw Operator Name Role Phone Klarissa Martinez MD Unavailable [phone] Rhonda Byrd MD Unavailable [phone] Darlene Phillips MD Primary Care Provider [phone] Nayan Morgan MD Unavailable [phone] Allergies Active Allergy Reactions Criticality Noted Date Comments Morphine Itching Low 02/17/2021 Penicillins Tramadol Itching Low 02/17/[address] (PROTONIX) 40 mg EC tablet Take 1 tablet (40 mg total) by mouth daily 05/28/2020 Active multivitamin tabletIndicatio ns:Vitamin Deficiency Prevention Take 1 tablet by mouth Active calcium carbonate (OS-YESENIA) 650 mg calcium (1,625 mg) tablet Take 1 tablet (1,625 mg total) by mouth daily Active albuterol HFA (PROVENTIL HFA,VENTOLIN HFA,PROAIR HFA) 90 mcg/actuation inhaler Inhale 2 puffs 05/19/2023 Active alendronate (FOSAMAX) 70 mg tablet Take 1 tablet (70 mg total) by mouth 03/17/2022 Active amLODIPine (NORVASC) 2.5 mg tablet Take 1 tablet (2.5 mg total) by mouth daily 02/09/2024 Active atorvastatin (LIPITOR) 10 mg tablet Take 1 tablet (10 mg total) by mouth daily 01/02/2024 Active cholecalciferol (VITAMIN D-3) 50,000 unit capsule Take 1 capsule (50,000 Units total) by mouth once a week 01/22/[address] (CYMBALTA) 60 mg capsule Take 1 capsule (60 mg total) by mouth 05/16/2022 Active FeroSuL 325 mg (65 mg iron) tablet Take 1 tablet (325 mg total) by mouth daily Active Trelegy Ellipta 100-62.5-25 mcg inhaler 1 puff daily 02/22/2024 Active furosemide (LASIX) 20 mg tablet Take 1 tablet (20 mg total) by mouth daily Active predniSONE (DELTASONE) 5 mg tablet TAKE 1 & 1/2 (ONE & ONE-HALF) TABLETS BY MOUTH ONCE DAILY Active Gemtesa 75 mg tablet Take 75 mg by mouth daily 03/13/2024 Active levothyroxine (SYNTHROID) 137 mcg tablet TAKE 1 TABLET BY MOUTH ONCE DAILY FOR 3 MONTHS 02/03/2024 Active Active Problems Problem Noted Date Diagnosed Date Malignant neoplasm of thyroid gland 11/30/2013 Cancer Staging:Pathologic stage from 02/17/2021:Stage I(rpTX, pN1, cM0, Age at diagnosis: < 55 years) - Signed by Rhonda Byrd MD on 02/17/2021 Overview (10/20/2016): MALIGN NEOPL THYROID Hypothyroidism 11/30/2013 Overview (10/20/2016): HYPOTHYROIDISM NOS Disorder of lung 01/11/2013 Myasthenia gravis 08/31/2012 Hypertension 08/31/2012 Vocal cord palsy 10/25/2010 Hoarseness 10/22/2010 Surgical History Surgery Date Site/Laterality Comments HYSTERECTOMY 07/17/1997 - 07/16/1998 Hysterectomy APPENDECTOMY 07/17/2002 - 07/16/2003 Appendectomy BLADDER SUSPENSION bladder lift CENTRAL LINE PLACEMENT > 5 YEARS 09/04/2012 N/A THYROIDECTOMY 07/17/1972 - 07/16/1973 Thyroidectomy GASTRIC BYPASS 04/16/2019 - 05/16/2019 THYMECTOMY 07/17/2013 - 07/16/2014 SUPERFICIAL LYMPH NODE BIOPS Y / EXCISION 07/17/1975 - 07/16/1976 PORT PLACEMENT CHEST >5 YEARS 03/03/2017 N/A PORT PLACEMENT CHEST >5 YEARS 03/03/2017 N/A PORT PLACEMENT CHEST >5 YEARS 03/03/2017 N/A PORT PLACEMENT CHEST >5 YEARS 02/27/2017 N/A PORT PLACEMENT CHEST >5 YEARS 12/07/2016 N/A PORT PLACEMENT CHEST >5 YEARS 03/15/2016 N/A PORT PLACEMENT CHEST >5 YEARS 03/10/2016 N/A SINUS SURGERY CYSTOCELE REPAIR RECTOCELE REPAIR Medical History Medical History Date Comments Hx Other Medical thyroid cancer s/p thyroidectomy and GARRISON Hx Other Medical Vocal cord para lysis. Hx Other Medical 1972 total thyroidec eimly Hx Other Medical 1975 Cervical lympn nodes -follicular hyperplasia Hx Other Medical 1976 S/P removal of neck mass-papillary thyroid cancer Hx Other Medical 1993 s/p lymph nodes removed Hx Other Medical 1998 lymph node abigail tracey -hyperplasia Gastroesophageal reflux disease GERD Disorder of thyroid Thyroid dise ase Hypertension Hypertension Hx Other Medical S/p GARRISON 4 doses of 100 millicurie each. Hypothyroidism Hypothyroidism Primary fibromyalgia syndrome fi bromyalgia Hx Other Medical chronic fatigue Malignant neoplasm of thyroid gland (HCC) Cancer, thyroid Hyperlipidemia Hyperlipidemia Depression Anxiety Family History Medical History Relation Name Comments Thyroid cancer Daughter Lung cancer Maternal Grandfather Brain cancer Mother's Brother 1 Colon cancer Mother's Brother 2 Leukemia Mother's Sister Lung cancer Paternal Grandfather Relation Name Status Comments Daughter Alive Maternal Grandfather Mother's Brother 1 Mother's Brother 2 Alive Mother's Sister Paternal Grandfather Social History Tobacco Use Types Packs/Day Years Used Date Smoking Tobacco: Former Cigarettes 0.5 25 1 979 - 2004 Smokeless Tobacco: Never Alcohol Use Standard Drinks/Week Comments Yes 0 (1 standard drink = 0.6 oz pur e alcohol) AUDIT-C Answer Date Recorded Q1: How often do you have a drink containing alc ohol? 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 Gender Identity Not on file Sexual Orientation Not on file Obstetrics History Last Filed Vital Signs Vital Sign Reading Time Taken Comments Blood Pressure 149/86 03/26/2024 12:48 PM CDT Pulse 97 03/26/2024 12:48 PM CDT Temperature - - Respiratory Rate - - Oxygen Saturation 95% 03/26/2024 12:48 PM CDT Inhaled Oxygen Concentration - - Weight 96.4 kg (212 lb 9.6 oz) 03/26/2024 12:48 PM CDT Height 160 cm (5' 3) 03/04/2013 9:54 AM CDT Body Mass Index - - Plan of Treatment Health Maintenance Due Date Last Done Comments Breast Cancer Screening-Mammogram 1960 Colon Cancer Screening-Colonoscopy 1960 Depression Screening 1960 Hepatitis C Screening 1960 Hepatitis B Screening 10/27/1979 Regular Well Visit/Exam 18-64 10/27/1979 Zoster Vaccine (1 of 2) 10/27/2011 DTaP/Tdap/Td Vaccine (2 - Td or Tdap) 07/17/2024 07/17/2014 Influenza Vaccine (#1) 2025 , 04/16/2021, 05/19/2020, Additional history exists Pneumococcal vaccine <65 Aged Out No longer eligible based on patient's age to complete this topic Insurance [facility] MEDICARE [facility] MEDICARE [facility] FEDERAL Member Subscriber Plan / Payer (Ef fective 2018-Present) Name:Yareli Glass Relation to Subscriber:Self Name:Yareli Glass Payer ID:[id number] (NAIC) Group ID:[id number] Type:BC ALLIANCE Address: [facility] [id number] [place] [id number] Care Teams Edger Saw Operator Relationship Specialty Start Date End Date Darlene Phillips MD [facility] [address] PCP - General Family Medicine 03/26/24 Klarissa Martinez MD [address] [address] Referring Physician Internal Medicine 02/17/21 Rhonda Byrd MD [facility] [address] [address] Radiation Oncologist Radiation Oncology 03/08/24 Nayan Morgan MD [address] [place] [address] Referring Physician Neurology 03/26/24
--- OUTSIDE RECORDS SUMMARY | 2025-04-01 12:08 | XMS_ITS | Patient Health Record ---
Author Organization [facility] [employer] Address [address] [place] [address] Care Team Providers Care Writer Producer Name Role Phone Cathy Licona Unavailable [phone] Reason For Referral No Information Medications Medication SIG (Take, Route, Frequency, Duration) Notes Start Date End Date Status Soliris 300 mg/30 mL Solution Intravenous 11/12/2020 Active FLUoxetine HCl 40 MG Capsule Oral 11/12/2020 Active FLUARIX QUAD (PF) 60 MCG (15 MCG X 4)/0.5 ML IM SYRINGE *Reorder from [employer] for eRx and Interaction Alerts* 11/12/2020 Active Omeprazole 40 MG Capsule Delayed Release Oral 11/12/2020 Active traZODone HCl 50 MG Tablet Oral 11/12/2020 Active lamoTRIgine 150 MG Tablet Oral 11/12/2020 Active Levothyroxine Sodium 150 MCG Tablet Oral 11/12/2020 Active EPINEPHrine 0.3 MG/0.3ML Solution Auto-injector Injection 11/12/2020 Active Immunizations Vaccine Route Administration Date Status Comme nts Tdap Unknown 07/17/2014 Administered Novel [id number], preservative free Unknown 05/19/2020 Administered Meningococcal MCV4P Unknown 06/29/2017 Administered Influenza, seasonal, injecta ble, preservative free, 3 yrs and above Unknown 04/29/2014 Administered Influenza virus vaccine, quadrivalent (IIV4), split virus, 0.25 mL dosage Unknown 04/16/2019 Administered Social History Social History Additional Details Category Social Info Options Details Migrated Social History Migrated Social History Alcohol Intake: None 01/25/2020,Tobacco Years: Former smoker 01/25/2020,Smoking Status: 2 01/25/2020 Plan Of Treatment No Information Insurance Providers Payer Name Payer Address Payer Phone Subscriber Number Group Number Insured Name Patient Relationship to Insured Coverage Start Date Coverage End Date Medicare-I l Medicare [address] [place] [phone] [id number] SASHA SANDERS Self - patient is the insured [employer] - Fep-DNU [address] [place] [address] [id number] SASHA SANDERS Self - patient is the insured Medical (General) History Surgical History Surgery Date(Month/Year) Endometr ablate thermal (70972) Hysterectomy/revise vagina (30526) Appendectomy (34212)
--- OUTSIDE RECORDS SUMMARY | 2025-04-01 12:08 | XMS_ITS | Clinical Summary ---
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 Gender Identity Not on file Sexual Orientation Not on file Plan of Treatment Health Maintenance Due Date Last Done Comments DTAP/TDAP/TD VACCINES (1 - Tdap) 1980 COLORECTAL SCREENING 2006 Colorectal Cancer Screening 2006 FIT-DNA Q 3 years 2006 FIT/FOBT Q 1 year 2006 Flex Sig/CT Colonography Q 5 years 2006 BREAST CANCER SCREENING 04/21/2010 04/21/2009 ZOSTER VACCINE (1 of 2) 10/27/2011 INFLUENZA VACCINE (#1) 2025 RSV VACCINE (60+ or ) (1 - 1-dose 75+ series) 2036 Procedures Procedure Name Priority Date/Time Associated Diagnosis Comments MAMMO SCREENING BILAT Routine 04/21/2009 12:06 PM CDT Other Screening Mammogram from Last 3 Months or Most Recently Relevant to Health Maintenance Results * MAMMO SCREENING BILAT (04/21/2009 12:06 PM CDT) Anatomical Region Laterality Modality Breast Bilateral Mammography Impressions 04/22/2009 9:29 AM CDT : No mammographic evidence of malignancy. RECOMMENDATIONS: Bilateral yearly screening mammogram is recommended. OVERALL ASSESSMENT: BI-RADS Category: 1, negative. Narrative 04/22/2009 9:29 AM CDT BILATERAL SCREENING MAMMOGRAMS, 04/21/2009 HISTORY: Screening mammogram. The previous mammogram is not available for comparison. FINDINGS: There are scattered fibroglandular densities. No significant mass, malignant calcification or architectural distortion is noted. Procedure Note La Sauer MD - 04/22/2009 BILATERAL SCREENING MAMMOGRAMS, 04/21/2009 HISTORY: Screening mammogram. The previous mammogram is not available for comparison. FINDINGS: There are scattered fibroglandular densities. No significantmass, malignant calcification or architectural distortion is noted. IMPRESSION: No mammographic evidence of malignancy. RECOMMENDATIONS: Bilateral yearly screening mammogram is recommended. OVERALL ASSESSMENT: BI-RADS Category: 1, negative. us Cathy Morris MD MAMMO ORDERABLES Final R esult from Last 3 Months or Most Recently Relevant to Health Maintenance Insurance [facility] OPTIONS PPO [id number] Care Teams Martial Arts Instructor Relationship Specialty Start Date End Date Noel Cuevas MD [facility] [place] [address] PCP - General 04/20/09
--- OUTSIDE RECORDS SUMMARY | 2025-04-01 12:08 | XMS_ITS ---
Author Organization [facility] Address [address] [place] [address] Care Team Providers Care Seismic Prospecting Observer Name Role Phone Klarissa Martinez MD Unavailable [phone] Rhonda Byrd MD Unavailable [phone] Darlene Phillips MD Primary Care Provider [phone] Nayan Morgan MD Unavailable [phone] Active Problems Problem Noted Date Diagnosed Date Malignant neoplasm of thyroid gland 11/30/2013 Cancer Staging:Pathologic stage from 02/17/2021:Stage I(rpTX, pN1, cM0, Age at diagnosis: < 55 years) - Signed by Rhonda Byrd MD on 02/17/2021 Overview (10/20/2016): MALIGN NEOPL THYROID Hypothyroidism 11/30/2013 Overview (10/20/2016): HYPOTHYROIDISM NOS Disorder of lung 01/11/2013 Myasthenia gravis 08/31/2012 Hypertension 08/31/2012 Vocal cord palsy 10/25/2010 Hoarseness 10/22/2010 Current Treatment and Therapy Plans Thyrogen: Stimulation of Thyroglobulin levels (Thyrotopin renard)* Plan Start Date:04/29/2024 Plan Provider:Rhonda Byrd MD Linked Problems Malignant neoplasm of thyroi d gland (HCC) Treatment Medications No medications scheduled. Past Treatment and Therapy Plans No past plan information found.
--- OUTSIDE RECORDS SUMMARY | 2025-04-01 12:08 | XMS_ITS ---
Author Organization [facility] Address [address] [facility] [place] [address] Care Team Providers Care Trade Promotion Analyst Name Role Phone Darlene Phillips MD Primary Care Provider Active Problems * This document contains information received from the source organization and may not represent a complete record from that organization. Problem Noted Date Diagnosed Date 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 Altered bowel habits 05/06/2019 Morbid obesity 04/17/2019 S/P gastric bypass 04/17/2019 Dysphagia 11/12/2018 Gastroesophageal reflux disease without esophagi tis 11/12/2018 Peptic stricture of esophagus 11/12/2018 Hematochezia 11/12/2018 Encounter for hepatitis C sc reening test for low risk patient 11/12/2018 Malignant neoplasm of thyroid gland 11/30/2013 Overview (05/11/2021): MALIGN NEOPL THYROID Hypothyroidism 11/30/2013 Overview (05/11/2021): HYPOTHYROIDISM NOS Abnormal results of thyroid function studies Myasthenia gravis without (acute) exacerbation 0 04/03/2013 Encounter for therapeutic drug level monitoring 02/04/2013 Disorder of lung 01/11/2013 Hypertension 08/31/2012 Vocal cord palsy 10/25/2010 Hoarseness 10/22/2010 Current Treatment and Therapy Plans No current plan information found. Other Current Plans ECULIZUMAB (SOLIRIS) THERAPY PLAN* Plan Start Date:08/12/2019 Plan Provider:Carmita Noriega MD Linked Problems Myasthenia gravis without (a cute) exacerbation (HCC) Treatment Medications No medications scheduled. Past Treatment and Therapy Plans
--- OUTSIDE RECORDS SUMMARY | 2025-04-01 12:08 | XMS_ITS | Clinical Summary ---
Author Organization [facility] Address [address], [facility] [address] [place] [address] Phone Care Team Providers Care Subacute Nurse Name Role Phone Darlene Phillips MD Primary Care Provider [phone] Heaven Russell MD Unavailable Allergies Active Allergy Reactions Criticality Noted Date Comments Morphine Itching Low 02/04/2013 Penicillins Itching,Shortness of Breath High 013 Propoxyphene Itching Low 02/04/2013 Tramadol Itching Low 03/16/2015 Medications levothyroxine (SYNTHROID) 137 MCG Tablet 04/19/2023 Active pantoprazole (PROTONIX) 40 MG Tablet Delayed Response TAKE 1 TABLET BY MOUTH IN THE MORNING 05/30/2023 Active alendronate (FOSAMAX) 70 MG Tablet Take 70 mg by mouth. 03/17/2022 Active furosemide (LASIX) 20 MG Tablet Take 20 mg by mouth. 09/14/2022 Active DULoxetine (CYMBALTA) [address] Particles Take 60 mg by mouth. 05/16/2022 Active albuterol 108 (90 Base) MCG/ACT Aerosol Solution take 2 Puffs by inhalation. 05/19/2023 Active predniSONE (DELTASONE) 5 MG Tablet Take 1.25 mg by mouth daily. Patient takes 1.25mg daily (04/16/24) 02/03/2024 Active Trelegy Ellipta 100-62.5-25 MCG/ACT AEROSOL POWDER, BREATH ACTIVATED INHALE 1 PUFF BY MOUTH ONCE DAILY Active atorvastatin (LIPITOR) 10 MG Tablet Take 10 mg by mouth daily. 01/02/2024 Active amLODIPine (NORVASC) 2.5 MG Tablet Take 2.5 mg by mouth daily. 02/09/2024 Active Gemtesa 75 MG Tablet Take 75 mg by mouth daily. 03/13/2024 Active ferrous sulfate (FeroSul) 325 (65 Fe) MG TabletIndication s:Myasthenia gravis,Secondary hypertension,Louann kocytosis, unspecified type,Iron deficiency anemia, unspecified iron deficiency anemia type Take 1 Tablet by mouth every other day. 30 Tablet 2 11/12/2024 Active ascorbic acid (ASCORBIC ACID) 500 MG TabletIndication s:Myasthenia gravis,Secondary hypertension,Louann kocytosis, unspecified type,Iron deficiency anemia, unspecified iron deficiency anemia type Take 1 Tablet by mouth every other day. 15 Tablet 2 11/12/2024 Active Active Problems Problem Noted Date Diagnosed Date HTN (hypertension) 11/12/2024 Leukocytosis 11/12/2024 Iron deficiency anemia 11/12/2024 Elevated blood pressure reading 07/16/2024 Myasthenia gravis 06/12/2023 Family History Medical History Relation Name Comments Cancer Child thyroid Clotting Disorder Father Heart Disease Father Other-comment Mother a-fib and mitr al valve prolapse Hypertension Sister Relation Name Status Comments Child Father Mother Sister Social History Tobacco Use Types Packs/Day Years Used Date Smoking Tobacco: Former Cigarettes Q uit: 2002 Smokeless Tobacco: Never Tobacco Cessation:Counseling Given: Not Answered Alcohol Use Standard Drinks/Week Comments Never 0 (1 standard drink = 0.6 oz pur e alcohol) Comments Unknown Sex and Gender Information Value Date Recorded Sex Assigned at Not on file Legal Sex Female 2:19 PM CDT Gender Identity Not on file Sexual Orientation Not on file Last Filed Vital Signs Vital Sign Reading Time Taken Comments Blood Pressure 158/96 11/12/2024 9:26 AM CDT Pulse 93 11/12/2024 9:26 AM CDT Temperature 36.6 C (97.8 F) 11/12/2024 9:26 AM CDT Respiratory Rate 18 11/12/2024 9:26 AM CDT Oxygen Saturation 95% 11/12/2024 9:26 AM CDT Inhaled Oxygen Concentration - - Weight 92.2 kg (203 lb 4.8 oz) 11/12/2024 9:26 A M CDT Height 160 cm (5' 3) 11/12/2024 9:26 AM CDT Body Mass Index 36.01 11/12/2024 9:26 AM CDT Plan of Treatment Upcoming Encounters Date Type Department Care Team (Late st Contact Info) Description 05/13/2025 9:00 AM CDT Lab [facility] [address] [phone] Lab, [facility] 05/13/2025 9:15 AM CDT Office Visit [facility] [address] [address] Heaven Russell MD [address] [place] [phone] Health Maintenance Due Date Last Done Comments Mammogram 1960 Cologuard 2006 Colonoscopy 2006 Colorectal Cancer Screening 2006 Immunochemical Fecal Occult Blood 2006 Pneumococcal Immunization (50+ years) (1 of 1 - PCV) 10/27/2011 Influenza Immunization (#1) 2025 08/0 03/2024, 05/03/2021, 04/16/2021, Additional history exists SARS-COV-2 Immunization ( season) 2025 07/15/2021, 09/21/2020 DTaP/Tdap/Td Immunization Discontinued 07/17/2014 TdaP Immunization Completed 07/17/2014 Hepatitis C Virus (HCV) Screening Completed 11/26/2018 Meningococcal Immunization (ACWY) Aged Out 02/13/2023, 09/30/2022, 06/29/2017 No longer eligible based on patient's age to complete this topic Respiratory Syncytial Virus (RSV) Immunization (Adult) Completed 02/23/2024 Zoster Immunization Completed 05/10/2024, Hepatitis B Immunization Aged Out No longer eligible based on patient's age to complete this topic Human Papillomavirus (HPV) Immunization Aged Out No longer eligible based on patient's age to complete this topic Rotavirus Immunization Aged Out No lo nger eligible based on patient's age to complete this topic Insurance MEDICARE [facility] Care Teams Subacute Nurse Relationship Specialty Start Date End Date Darlene Phillips MD [address] [place] [address] PCP - General Family Medicine 05/12/23 Heaven Russell MD [address] [place] [id number] Consulting Physician Oncology 09/29/23
--- OUTSIDE RECORDS SUMMARY | 2025-04-01 12:08 | XMS_ITS | Encounter Summary ---
Author Organization [facility] Address [address] [facility] [place] [address] Care Team Providers Care Serials Librarian Name Role Phone Darlene Phillips MD Primary Care Provider [phone] Reason for Visit * Reason Onset Date Comments MEDICATION REFILL 11/24/2019 Encounter Details Date Type Department Care Team (Late st Contact Info) Description 11/24/2019 Refill [facility] 2S SURG/BARIATRIC [address] [place] [address] Cathy Archibald, DRAMA DIRECTOR-[facility] [address] [facility] [address] [place] [address] MEDICATION REFILL Social History Tobacco Use Types Packs/Day Years Used Date Smoking Tobacco: Former Cigarettes 0 2 005 - 2005 Smokeless Tobacco: Never Alcohol Use Standard Drinks/Week Comments Yes 1 (1 standard drink = 0.6 oz pure alcohol) 1-2 drinks per year, often less Comments No Sex and Gender Information Value Date Recorded Sex Assigned at Not on file Legal Sex Female 5:20 PM ADOPTION SPECIALIST Gender Identity Not on file Sexual Orientation Not on file documented as of this encounter Functional Status * Is person deaf or have serious hearing difficulty? Answer Date of Assessment Author No 04/17/2019 4:03 PM CDT Mitzi Yusuf RN * Is person blind or have serious difficulty seeing? Answer Date of Assessment Author No 04/17/2019 4:03 PM CDT Mitzi Yusuf RN * Does person have serious difficulty walking/climbing stairs? Answer Date of Assessment Author No 04/17/2019 4:03 PM CDT Mitzi Yusuf RN * Does person have difficulty dressing/bathing? Answer Date of Assessment Author No 04/17/2019 4:03 PM CDT Mitzi Yusuf RN * Does person have difficulty doing errands alone? Answer Date of Assessment Author No 04/17/2019 3:30 PM CDT Alexandra Martinez RN documented as of this encounter Mental Status * Does person have difficulty concentrating/remembering/making decisions? Answer Entry Date Author No 04/17/2019 4:03 PM CDT Mitzi Yusuf RN documented in this encounter Plan of Treatment Not on file documented as of this encounter Goals Goal Patient Goal Type Associated Problems Recent Progress Patient-Stated? Author Medication Management General On track( 019 9:37 AM CDT) Olivia Chaney RN Note: Expected end date: ongoing Interventions: Take all medications as prescribed Let your doctor know right away about any changes in your medications Make sure to request a refill of your medication at least one week prior to your last dose documented as of this encounter Visit Diagnoses Not on filedocumented in this encounter Care Teams Serials Librarian Relationship Specialty Start Date End Date Darlene Phillips MD [address] [place] [address] PCP - General 03/30/16 documented as of this encounter
--- OUTSIDE RECORDS SUMMARY | 2025-04-01 12:08 | XMS_ITS | Clinical Summary ---
Author Organization [facility] Address [address] [facility] [address] Care Team Providers Care Micro Lab Analyst Name Role Phone Darlene Phillips MD Primary Care Provider [phone] Source Comments [facility],non-owned Affiliates and Associated Physician Practices is amultiple site organization consisting of ambulatory clinics and hospital sitesin [place], [place], [place] and [place]. This disclosure is being madepursuant to the Care Everywhere program and may not contain all information available regarding this patient. Last updated 18.[facility] Allergies Active Allergy Reactions Criticality Noted Date Comments Morphine Itching Low 02/04/2013 Penicillins Shortness of Breath,Itching High 013 Propoxyphene N-Apap Itching Low 02/04/2013 Tramadol Itching Low 03/16/2015 Medications * This document contains information received from the source organization and may not represent a complete record from that organization. * Be aware that medications may not be up to date on this document. Alwaysverify current medications with the patient. lidocaine-prilo glynn (EMLA) 2.5-2.5 % creamIndication s:Local Anesthesia,Port site pain Apply a small amount to port site, for pain, Monthly. Dispense 1 tube Reasons: Anesthesia to a Specific Part of the Body, Port site pain 5 g 3 9 Active Additional Information Patient not taking.Reported on 05/11/2021 levothyroxine (SYNTHROID) 137 MCG tablet Take 150 mcg by mouth daily before breakfast Active traZODone (DESYREL) 50 MG tablet Take 50 mg by mouth at bedtime Active FLUoxetine (PROZAC) 20 MG capsule Take 20 mg by mouth once daily Active lamoTRIgine (LAMICTAL) 100 MG tablet Take 100 mg by mouth once daily Active LORazepam (ATIVAN) 0.5 MG tablet TK 1 T PO BID PRA 0 Active lamoTRIgine (LAMICTAL) 25 MG tablet TK 2 TS PO D 0 Active diphenhydrAMINE (BENADRYL) 50 MG/ML injection 0 Active pantoprazole EC (PROTONIX) 40 MG tablet Take 1 tablet by mouth once daily 30 tablet 5 0 Active pyridostigmine (MESTINON) 60 MG tablet Take 1 (one) tablet by mouth 3 times daily as needed 90 tablet 3 1 Active omeprazole (PRILOSEC) 40 MG capsule Take 1 capsule by mouth once daily 30 capsule 4 1 Active Active Problems Problem Noted Date Diagnosed Date 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 Altered bowel habits 05/06/2019 Morbid obesity 04/17/2019 S/P gastric bypass 04/17/2019 Dysphagia 11/12/2018 Gastroesophageal reflux disease without esophagi tis 11/12/2018 Peptic stricture of esophagus 11/12/2018 Hematochezia 11/12/2018 Encounter for hepatitis C va reening test for low risk patient 11/12/2018 Malignant neoplasm of thyroid gland 11/30/2013 Overview (05/11/2021): MALIGN NEOPL THYROID Hypothyroidism 11/30/2013 Overview (05/11/2021): HYPOTHYROIDISM NOS Abnormal results of thyroid function studies Myasthenia gravis without (acute) exacerbation 0 04/03/2013 Encounter for therapeutic drug level monitoring 02/04/2013 Disorder of lung 01/11/2013 Hypertension 08/31/2012 Vocal cord palsy 10/25/2010 Hoarseness 10/22/2010 Immunizations Immunization Administration Dates Next Due INFLUENZA VACCINE, TRIV. (AF LURIA, FLUZONE TRIVALENT; 6MO+) (IIV3) 04/29/2014,08/26/2013 INFLUENZA VACCINE 04/16/2021 INFLUENZA VACCINE, QUADR. (F LUZONE; FLULAVAL; FLUARIX; AFLURIA QUADRIVALENT; 6MO+), 0.5 ML (IIV4) 05/19/2020 MENINGOCOCCAL ACWY (MCV4P) VAC IM 06/29/2017 Family History Medical History Relation Name Comments Asthma Father Status: d Heart Disease Father Hypertension Mother Status: Alive Arthritis Paternal Grandmother Status: Cancer Paternal Uncle Status: Decea sed Hypertension Sister 1 Status: Alive Other Sister 2 mixed connectiv e tissue disease Relation Name Status Comments Father Mother Paternal Grandmother Paternal Uncle Sister 1 Sister 2 Social History Tobacco Use Types Packs/Day Years Used Date Smoking Tobacco: Former Cigarettes 0 2 005 - 2004 Smokeless Tobacco: Never Tobacco Cessation:Counseling Given: No Alcohol Use Standard Drinks/Week Comments Yes 1 (1 standard drink = 0.6 oz pure alcohol) 1-2 drinks per year, often less Comments No Sex and Gender Information Value Date Recorded Sex Assigned at Not on file Legal Sex Female 5:20 PM PREFITTER DOORS Gender Identity Not on file Sexual Orientation Not on file Last Filed Vital Signs Vital Sign Reading Time Taken Comments Blood Pressure 126/80 05/11/2021 8:52 AM CDT Pulse 74 05/11/2021 8:52 AM CDT Temperature 36.3 C (97.4 F) 05/11/2021 8:52 AM CDT Respiratory Rate 18 04/03/2020 1:25 PM CDT Oxygen Saturation 98% 05/11/2021 8:52 AM CDT Inhaled Oxygen Concentration - - Weight 74.1 kg (163 lb 4.8 oz) 05/11/2021 8:52 A M CDT Height 157.5 cm (5' 2) 05/11/2021 8:52 AM CDT Body Mass Index 29.87 05/11/2021 8:52 AM CDT Plan of Treatment Health Maintenance Due Date Last Done Comments COLOGUARD (AGES 45-75) - COLON CA SCREENING 1961 CT COLONOGRAPHY - COLON CA SCREENING 1961 FIT - COLON CA SCREENING 1961 FLEX SIG - COLON CA SCREENING 1961 LIPID TESTING 1961 MEDICARE AWV 12 MONTHS 1961 HIV SCREENING 1976 DTAP/TDAP/TD VACCINES (1 - Tdap) 1980 MAMMOGRAM 04/21/2011 04/21/2009 PNEUMOCOCCAL VACCINE 50+ (1 of 1 - PCV) 10/27/2011 ZOSTER VACCINE (1 of 2) 10/27/2011 SCREENING FOR DIABETES 09/11/2023 , 01/31/2020, 10/21/2019, Additional history exists DEPRESSION SCREENING 07/17/2024 COVID-19 VACCINE ( - season) 2025 INFLUENZA VACCINE (#1) 2025 , 05/19/2020, 04/29/2014, Additional history exists COLON MONITORING 09/16/2027 09/15/2017 COLONOSCOPY - COLON CA SCREENING 09/16/2027 09/15/2017 Colorectal Cancer Screening 09/16/2027 Respiratory Syncytial Virus (RSV) Vaccine Pt: or over 60 yrs (1 - 1-dose 75+ series) 2036 MENINGOCOCCAL GROUPS A/C/Y/W VACCINE Aged Out 06/29/2017 No longer eligible based on patient's age to complete this topic HEPATITIS C SCREENING Completed 11/26/2018 HEPATITIS B VACCINE Aged Out No longe r eligible based on patient's age to complete this topic HIB VACCINE Aged Out No longer eligi ble based on patient's age to complete this topic HPV VACCINE Aged Out No longer eligi ble based on patient's age to complete this topic MENINGOCOCCAL (Group B) VACCINE SHARED DECISION-MAKING Aged Out No longer eligible based on patient's age to complete this topic Goals Goal Patient Goal Type Associated Problems Recent Progress Patient-Stated? Author Medication Management General On track( 019 9:37 AM CDT) Olivia Chaney, RN Note: Expected end date: ongoing Interventions: Take all medications as prescribed Let your doctor know right away about any changes in your medications Make sure to request a refill of your medication at least one week prior to your last dose Procedures Procedure Name Priority Date/Time Associated Diagnosis Comments COMPREHENSIVE METABOLIC PANEL 09/11/2020 9:46 AM PREFITTER DOORS HEPATITIS C RNA QUANTITATIVE Routine 11/26/2018 10:18 AM CDT Encounter for HCV screening test for high risk patient COLONOSCOPY Routine 09/15/2017 from Last 3 Months or Most Recently Relevant to Health Maintenance Results * COMPREHENSIVE METABOLIC PANEL (09/11/2020 9:46 AM PREFITTER DOORS) [facility] Glucose 83 65 - 99 mg/dL [facility] Comment: Fasting reference interval BUN 12 7 - 25 mg/dL [facility] Creatinine 0.67 0.50 - 1.05 mg/dL [facility] Comment: For patients >49 years of age, the reference limit for Creatinine is approximately 13% higher for people identified as -Zimbabwean. eGFR by MDRD 97 > OR = 60 mL/min/1 .73m2 [facility] eGFR by MDRD 112 > OR = 60 mL/min/1 .73m2 [facility] BUN/Creatinine Ratio NOT APPLICABLE 6 - 22 (calc) [facility] Sodium 144 135 - 146 mmol/L [facility] Potassium 4.0 3.5 - 5.3 mmol/L [facility] Chloride 105 98 - 110 mmol/L [facility] CO2 32 20 - 32 mmol/L [facility] Calcium 9.1 8.6 - 10.4 mg/dL [facility] Protein Total 6.5 6.1 - 8.1 g/dL [facility] Albumin 3.9 3.6 - 5.1 g/dL [facility] Globulin Total 2.6 1.9 - 3.7 g/dL (calc) [facility] Albumin/Globulin Ratio 1.5 1.0 - 2.5 (calc) [facility] Bilirubin Total 0.4 0.2 - 1.2 mg/dL [facility] Alkaline Phosphatase 74 37 - 153 U/L [facility] AST 18 10 - 35 U/L [facility] ALT 22 6 - 29 U/L [facility] Comment: Test Performed at: [facility] [id number] [place] [address] RANDAL FUENTES DO,MPH 09/11/2020 9:46 AM PREFITTER DOORS 09/11/2020 9:47 AM PREFITTER DOORS us Kylee A Satya WORM SORTER-PRODUCTION SUPERVISOR [facility] - CHEMISTRY REBECA JONES Final Result Performing Organization Address [facility] Co de Phone Number [facility] [address] [place] [address] * HEPATITIS C RNA QUANTITATIVE (11/26/2018 10:18 AM CDT) Hepatitis C Virus RNA, Quantitative Real Time PCR <15 NOT DETECTED NOT DETECTED IU/mL [facility] Hepatitis C Virus RNA, Quantitative Real Time PCR <1.18 NOT DETECTED NOT DETECTED Log IU/mL [facility] Comment: This test was performed using Real-Time Polymerase Chain Reaction. Reportable Range: 15 IU/mL to 100,000,000 IU/mL (1.18 Log IU/mL to 8.00 Log IU/mL). The analytical performance characteristics of this assay have been determined by [facility]. The modifications have not been cleared or approved by the FDA. This assay has been validated pursuant to the CLIA regulations and is used for clinical purposes. For more information on this test, go to: http://education.[employer]/faq/LWJ20d3 (This link is being provided for informational/ educational purposes only.) REPORT COMMENT: FASTING:NO Test Performed at: [facility] [id number] [place] [address] RANDAL FUENTES DO,MPH Blood BLOOD SPECIMEN / Unknown 11/26/2018 10:18 AM CDT 11/26/2018 10:18 AM CDT us Cathy Hansen MD LAB - CHEMISTRY ORDERAB LES Final Result Performing Organization Address [facility] Co de Phone Number [facility] [address] [place] [address] * COLONOSCOPY (09/15/2017) us Fred Jennings MD GENERIC SURGICAL HISTORY Kavya l Result from Last 3 Months or Most Recently Relevant to Health Maintenance Insurance MEDICARE [facility] MEDICARE [facility] MEDICARE [facility] MEDICARE [facility] MEDICARE [facility] Advance Directives * Full Code (Latest Code Status on File) Date Activated Date Inactivated Comments 04/17/2019 8:30 AM 04/18/2019 9:26 PM Care Teams Micro Lab Analyst Relationship Specialty Start Date End Date Darlene Phillips MD [address] [place] [address] PCP - General 03/30/16
--- OUTSIDE RECORDS SUMMARY | 2025-04-01 12:08 | XMS_ITS | Encounter Summary ---
Author Organization [facility] Address [address] [place] [address] Care Team Providers Care Marble Machine Tender Name Role Phone Darlene Phillips MD Primary Care Provider [phone] Rhonda Byrd MD Unavailable [phone] Klarissa Martinez MD Unavailable [phone] Rhonda Byrd MD Unavailable [phone] Darlene Phillips MD Primary Care Provider [phone] Nayan Morgan MD Unavailable [phone] Encounter Details Date Type Department Care Team (Late st Contact Info) Description 03/04/2021 Orders Only [facility] Medical Office Building 2 Radiation Oncology [address] [place] [phone] Rhonda Byrd MD [address] [place] [address] [phone] Malignant neoplasm of thyroid gland (HCC) (Primary Dx) Social History Tobacco Use Types Packs/Day Years Used Date Smoking Tobacco: Former Cigarettes 0.5 25 1 979 - 2004 Smokeless Tobacco: Never Alcohol Use Standard Drinks/Week Comments Yes 0 (1 standard drink = 0.6 oz pur e alcohol) AUDIT-C Answer Date Recorded Q1: How often do you have a drink containing alc ohol? Monthly or less 02/17/2021 Average Number of Drinks Not on file 021 Frequency of Binge Drinking Not on file 10/2020 Comments Unknown Sex and Gender Information Value Date Recorded Sex Assigned at Not on file Legal Sex Female 9:51 PM OPERATIONS DEVELOPER Gender Identity Not on file Sexual Orientation Not on file documented as of this encounter Plan of Treatment Not on file documented as of this encounter Procedures Procedure Name Priority Date/Time Associated Diagnosis Comments NM THYROID CANCER METS WHOLE BODY IMAGING IP Routine 03/19/2021 10:38 AM CDT documented in this encounter Results * NM I-131 Whole Body Imaging (03/19/2021 10:38 AM CDT) Anatomical Region Laterality Modality Head and Neck N/A Nuclear Medicine 03/19/2021 1:38 PM CDT Narrative 03/23/2021 11:01 AM CDT EXAM DESCRIPTION: NM THYROID CANCER METS WHOLE BODY IMAGING REASON FOR STUDY: Thyroid cancer, known, rising thyroglobulin, possible recurrence. Multiple high dose I 131 therapies in the past, thyroid cancer for 48 years. RADIOPHARMACEUTICAL: 5.5 mCi I-131 sodium iodide p.o. TECHNIQUE: See clinical notes with regard to patient preparation for the examination and radiation safety precautions. COMPARISON: None available. FINDINGS: There is expected I-131 activity in the salivary glands, stomach, colon, and urinary bladder. No increased activity consistent with functioning thyroid tissue is seen. IMPRESSION: No evidence of radioactive iodine avid metastasis. THIS IS AN ELECTRONICALLY VERIFIED FINAL REPORT 03/23/2021 11:01 AM - Electronically signed by Zander Chester M.D. T: Report ID: [id number] Reading Location: [id number] Procedure Note Zander Chester Jr., MD - 03/23/2021 EXAM DESCRIPTION: NM THYROID CANCER METS WHOLE BODY IMAGING REASON FOR STUDY: Thyroid cancer, known, rising thyroglobulin, possible recurrence. Multiple high dose I 131 therapies in the past, thyroidcancer for 48 years. RADIOPHARMACEUTICAL: 5.5 mCi I-131 sodium iodide p.o. TECHNIQUE: See clinical notes with regard to patient preparation for the examination and radiation safety precautions. COMPARISON: None available. FINDINGS: There is expected I-131 activity in the salivary glands, stomach, colon,and urinary bladder. No increased activity consistent with functioningthyroid tissue is seen. IMPRESSION: No evidence of radioactive iodine avid metastasis. THIS IS AN ELECTRONICALLY VERIFIED FINAL REPORT 03/23/2021 11:01 AM - Electronically signed by Zander Chester M.D. T: Report ID: [id number] Reading Location: [id number] Rhonda Byrd MD IMG NM PROCEDURES Final R esult documented in this encounter Visit Diagnoses Diagnosis Malignant neoplasm of thyroid gland (HCC)- Primary Malignant neoplasm of thyroid gland documented in this encounter Orders Medications Ordered That Jeremy ht Not Have Been Administered Count Last Ordered Date First Ordered Date thyrotropin renard (THYROGEN) injection 0.9 mg 1 03/04/2021 documented in this encounter Care Teams Marble Machine Tender Relationship Specialty Start Date End Date Darlene Phillips MD PCP - General 06/21/12 03/25/24 [place] [address] [place] [address] PCP - General Family Medicine 03/26/24 Rhonda Byrd MD Radiation Oncologist Radiation Oncology 02/17/21 Klarissa Martinez MD [address] [address] Referring Physician Internal Medicine 02/17/21 Rhonda Byrd MD [address] [place] [address] Radiation Oncologist Radiation Oncology 03/08/24 Nayan Morgan MD [address] [place] [address] Referring Physician Neurology 03/26/24 documented as of this encounter
--- OUTSIDE RECORDS SUMMARY | 2025-04-01 12:08 | XMS_ITS | Encounter Summary ---
Author Organization [facility] Address [address] [place] [address] Phone Care Team Providers Care Color Sprayer Name Role Phone Darlene Phillips MD Primary Care Provider [phone] Heaven Russell MD Unavailable Reason for Visit * Reason Comments Medication Refill Encounter Details Date Type Department Care Team (Late Contact Info) Description 09/29/2023 Refill [facility] [address] [place] [phone] Heaven Russell MD [address] [place] [phone] Medication Refill Social History Tobacco Use Types Packs/Day Years Used Date Smoking Tobacco: Former Cigarettes Q uit: 2002 Smokeless Tobacco: Never Alcohol Use Standard Drinks/Week Comments Never 0 (1 standard drink = 0.6 oz pur e alcohol) Comments Unknown Sex and Gender Information Value Date Recorded Sex Assigned at Not on file Legal Sex Female 2:19 PM CDT Gender Identity Not on file Sexual Orientation Not on file documented as of this encounter Miscellaneous Notes * Telephone Encounter - Yony Ba RN - 09/29/2023 4:36 PM CDT Refill request from pharmacy. Refill if appropriate. documented in this encounter Plan of Treatment Upcoming Encounters Date Type Department Care Team (Late st Contact Info) Description 05/13/2025 9:00 AM CDT Lab [facility] [address] [phone] Lab, [facility] 05/13/2025 9:15 AM CDT Office Visit [facility] [address] [phone] Heaven Russell MD [address] [place] [address] [phone] documented as of this encounter Visit Diagnoses Not on filedocumented in this encounter Care Teams Color Sprayer Relationship Specialty Start Date End Date Darlene Phillips MD [address] [place] [address] PCP - General Family Medicine 05/12/23 Heaven Russell MD [address] [place] [phone] Consulting Physician Oncology 09/29/23 documented as of this encounter
== END 2025-04-01 10:24 | disposition home or self-care (01) ==
PROVIDERS: PCP Family Medicine; Visit Provider Internal Medicine Endocrinology, Diabetes & Metabolism
DX: C73 Malignant neoplasm of thyroid gland (principal); E03.8 Other specified hypothyroidism; M81.0 Age-related osteoporosis without current pathological fracture; R79.89 Other specified abnormal findings of blood chemistry; D35.01 Benign neoplasm of right adrenal gland; R73.03 Prediabetes; E78.5 Hyperlipidemia, unspecified; E55.9 Vitamin D deficiency, unspecified; D17.79 Benign lipomatous neoplasm of other sites; N20.0 Calculus of kidney
CPT/HCPCS: 78815; A9552

== ENCOUNTER 2025-04-10 12:20 | Outpatient (CLI) | payer MEDICARE, BC, SELFPAY ==
--- NOTE | ~2025-04-10 | XR_ITS ---
EXAMINATION: XR shoulder RT min 2V, 04/10/2025 12:28 CDT HISTORY: M25.511 - Pain in right shoulder COMPARISON: No comparisons available. Findings: No acute fracture or malalignment. No significant degenerative changes. Soft tissues unremarkable. Impression: No acute fracture or malalignment. Reviewed, dictated and finalized at location P. Impression: No acute fracture or malalignment.
== END 2025-04-10 12:21 | disposition home or self-care (01) ==
PROVIDERS: PCP Family Medicine; Visit Provider Student in an Organized Health Care Education/Training Program
DX: M25.511 Pain in right shoulder (principal)
CPT/HCPCS: 73030